=== PATIENT | female | born 1995 | race Two or more races ===

== ENCOUNTER 2024-09-11 17:54 | Emergency (ER) | payer MEDICAID, OTHER ==
[~2024-09-11] VITALS: Ht 162.6 cm; Wt 60.7 kg
--- NOTE | 2024-09-11 18:12 | ED.PDOC ---
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 NO SWELLING OR DEFORMITY NOTED. Time Seen by MD: 17:59 Reviewed Notes: Nurses Notes, Medications, Allergies Allergies: Coded Allergies: NO KNOWN ALLERGIES (Unverified , 09/11/24) Information Source: Patient Past Medical History PAST MEDICAL HISTORY: Denies Surgical History: Denies all surgeries CYBER SECURITY ARCHITECT History: No Pertinent CYBER SECURITY ARCHITECT History Family History Family History: Reviewed,noncontributory to illness Social History Smoker: Non-Smoker Alcohol: Denies ETOH Use Drugs: Denies Drug Use Constitutional: denies: chills, diaphoresis, fatigue, fever, malaise, sweats, weakness, others EENTM: denies: blurred vision, double vision, ear bleeding, ear discharge, ear drainage, ear pain, ear ringing, eye pain, eye redness, hearing loss, mouth pain, mouth swelling, nasal discharge, nose bleeding, nose congestion, nose pain, photophobia, tearing, throat pain, throat swelling, voice changes, others Respiratory: denies: cough, hemoptysis, orthopnea, SOB at rest, shortness of breath, SOB with excertion, stridor, wheezing, others Cardiovascular: denies: chest pain, dizzy spells, diaphoresis, Dyspnea on exertion, edema, irregular heart beat, left arm pain, lightheadedness, palpitations, PND, syncope, others Gastrointestinal: denies: abdomen distended, abdominal pain, blood streaked bowels, constipated, diarrhea, dysphagia, difficulty swallowing, hematemesis, melena, nausea, poor appetite, poor fluid intake, rectal bleeding, rectal pain, vomiting, others Genitourinary: denies: abnormal vagina bleeding, burning, dyspareunia, dysuria, flank pain, frequency, hematuria, incontinence, pain, , vagina discharge, urgency, others Neurological: denies: dizziness, fainting, headache, left sided numbness, left sided weakness, numbness, paresthesia, pre-existing deficit, right sided numbness, right sided weakness, seizure, speech problems, tingling, tremors, weakness, others Musculoskeletal: reports: joint pain, joint swelling; denies: back pain, gout, muscle pain, muscle stiffness, neck pain, others Integumetry: denies: bruises, change in color, change in hair/nails, dryness, laceration, lesions, lumps, rash, wounds, others Allergic/Immunocompromised: denies: Difficulty Healing, Frequent Infections, Hives, Itching, others Hematologic/Lymphatic: denies: anemia, blood clots, easy bleeding, easy bruising, swollen glands, others Endocrine: denies: excessive hunger, excessive sweating, excessive thirst, excessive urination, flushing, intolerance to cold, intolerance to heat, unexplained weight gain, unexplained weight loss, others Psychiatric: denies: anxiety, bipolar disorder, depression, hopeless, panic disorder, schizophrenia, sleepless, suicidal, others Physical Exam General Appearance: No Apparent Distress, Normal HEENT: Pharynx Normal Neck: Full Range of Motion, Non-Tender Respiratory: Lungs Clear, No Respiratory Distress, Normal Breath Sounds Cardiovascular: No Edema, No Murmur, Normal Peripheral Pulses, Regular Rate/Rhy thm Breast Exam: Deferred Gastrointestinal: Non Tender, Soft Genitalia: Deferred Pelvic: Deferred Rectal: Deferred Extremities: Normal capillary refill, Normal range of motion Musculoskeletal : Location: Right Extremity Location: Hand (RIGHT THUMB TENDERNESS, TRACE EDEAMA, NO NOTED ECCHYMOSIS, ANGULATION, ABRASION OR LACERATION) Apperance: Normal Neurologic: Alert, No Motor Deficits, Normal Affect, Normal Mood, No Sensory Deficits Cerebellar Function: Normal Reflexes: Normal Skin: Dry, Normal Color, Warm Lymphatic: No Adenopathy Was a procedure done? Was a procedure done?: No Back Pain Differential Dx Differential Diagnosis: Fracture, Musculoskeletal Pain X-Ray, Labs, Meds, VS Vital Signs Date Time Temp Pulse Resp B/P (MAP) Pulse Ox O2 Delivery O2 Flow Rate FiO2 09/11/24 18:14 98.2 118 16 120/69 (86) 95 98.2 X-Ray, Labs, Meds, VS Comment Right hand x-ray shows no acute fractures, subluxations, dislocations or osseous lesions. Likely a tendon strain. Script trial of ibuprofen advised take medications as prescribed side effects discussed. Advised to rest ice compress and elevate. Follow up with your PCP in 2-3 days as necessary consider further imaging if symptoms persist. ER return precautions given patient indicates understanding and agrees with discharge plan of care. Time of 1ST Reevaluation: 18:10 Reevaluation 1ST: Unchanged Time of 2ND Reevaluation: 19:27 Reevaluation 2ND: Improved Patient Education/Counseling: Diagnosis, Treatment, Prognosis, Need For Follow Up Family Education/Counseling: No Family Present SEPSIS Sepsis Screen Physician Orders R Hand 3 View Xray (09/11/24 18:20) Vital Signs Date Time Temp Pulse Resp B/P (MAP) Pulse Ox O2 Delivery O2 Flow Rate FiO2 09/11/24 18:14 98.2 118 16 120/69 (86) 95 98.2 Departure 1 Departure Time of Disposition: 19:27 Impression: Primary Impression: Strain of tendon of right thumb Disposition: 01 HOME / SELF CARE / HOMELESS Condition: Stable e-Prescriptions Ibuprofen (Ibuprofen) 800 Mg Tab 800 MG PO Q8HP PRN for 5 Days, #15 TAB Prov: JOSE LUGO 09/11/24 Discharged With: Self Critical Care Note Critical Care Time?: No Stability Stability form required: JOSE Causey Sep 11, 2024 18:12
[2024-09-11 18:14] VITALS: BP 120/69; PULSE 118; RESP 16; TEMP 98.2; O2SAT 95
--- NOTE | 2024-09-11 18:51 | DVH ---
CLINICAL INDICATION: RIGH THUMB INJURY TECHNIQUE: 3 radiographic views of the right hand were obtained. Comparison: None FINDINGS/IMPRESSION: Bony alignment appears normal There are no fractures or dislocations. Bony structures of the right thumb appear to be in normal alignment with no fractures or dislocations . There are no soft tissue calcifications. HS:Y
[2024-09-11] MEDS ORDERED: IBUP-1456 PO (19:28)
== END 2024-09-11 21:55 | disposition home or self-care (01) ==
LOC: ER 17:54
DX: S56.311A Strain of extensor or abductor muscles, fascia and tendons of right thumb at forearm level, initial encounter (principal); X58.XXXA Exposure to other specified factors, initial encounter; Y93.89 Activity, other specified; Y92.89 Other specified places as the place of occurrence of the external cause; Y99.8 Other external cause status
CPT/HCPCS: 29130; 73130